=== PATIENT | female | born 1960 | race Caucasian/White ===

== ENCOUNTER 2019-02-23 09:00 | Outpatient (RCR) | payer BC | END 2019-02-23 09:30 | LOC: PT 09:00 | DX: M54.16 Radiculopathy, lumbar region (principal) ==

== ENCOUNTER 2021-03-18 09:12 | Emergency (ER) | payer BC ==
[~2021-03-18] VITALS: Ht 162.6 cm; Wt 79.4 kg
[2021-03-18] MEDS ORDERED: CARVEDILOL12.5 MG PO (09:34)
[2021-03-18] MEDS ORDERED: LAMOTRIGINE300 MG PO (09:34)
[2021-03-18] MEDS ORDERED: ROSUVASTATIN CA10 MG PO (09:35)
[2021-03-18] MEDS ORDERED: GOOD NEIGHBOR P20 M1 PO (09:35)
[2021-03-18] MEDS ORDERED: ESTRADIOL0.1 MG/24 TD (09:35)
[2021-03-18] MEDS ORDERED: DESYREL50 MG PO (09:36)
[2021-03-18] MEDS ORDERED: RITALIN 20 MG (09:40)
[2021-03-18 10:27] LABS: BASO # 0.05 (0.02-0.10); EOS # 0.26 (0.04-0.40); EOS % 5.5 % (1.0-5.0); HEMATOCRIT 45.1 % (37.0-47.0); HEMOGLOBIN 14.3 g/dL (12.5-16.0); LYMPH# 1.04 (1.50-4.00); MEAN CELL VOLUME 96 fl (78-100); MEAN CORPUSCULAR HEMOGLOBIN 31 pg (27-31); MEAN CORPUSCULAR HGB CONC 32 g/dL (33-37); MEAN PLATELET VOLUME 9.8 fl (7.4-10.4); MONO # 0.42 (0.20-0.80); NEU # 2.93 (1.40-6.50); PLATELET COUNT 211 K/mm3 (130-400); RED BLOOD COUNT 4.68 M/mm3 (4.10-5.30); RED CELL DISTRIBUTION WIDTH 11.8 % (11.5-14.5); WHITE BLOOD COUNT 4.7 K/mm3 (4.8-10.8)
[2021-03-18 10:41] LABS: POTASSIUM 4.6 mmol/L (3.5-5.1)
[2021-03-18 10:42] LABS: CALCIUM 9.8 mg/dL (8.3-10.5)
[2021-03-18 10:49] LABS: MAGNESIUM 1.97 mg/dL (1.60-2.60)
[2021-03-18 11:14] VITALS: BP 160/92
== END 2021-03-18 11:14 | disposition home or self-care (01) ==
LOC: ED 09:12
PROVIDERS: Physician Assistant
DX: R19.7 Diarrhea, unspecified (principal); R11.0 Nausea; T43.215A Adverse effect of selective serotonin and norepinephrine reuptake inhibitors, initial encounter; G47.00 Insomnia, unspecified; F32.9 Major depressive disorder, single episode, unspecified; E78.5 Hyperlipidemia, unspecified; I10 Essential (primary) hypertension; Z79.899 Other long term (current) drug therapy

== ENCOUNTER 2021-12-14 08:44 | Outpatient (RCR) | payer BC ==
[~2021-12-14 08:44] MED LIST: CARVEDILOL12.5 MG PO; DESYREL50 MG PO; ESTRADIOL0.1 MG/24 TD; GOOD NEIGHBOR P20 M1 PO; LAMOTRIGINE300 MG PO; RITALIN 20 MG; ROSUVASTATIN CA10 MG PO
== END 2021-12-29 | disposition home or self-care (01) ==
LOC: PT
DX: M25.561 Pain in right knee (principal)

== ENCOUNTER 2022-01-06 09:00 | Outpatient (RCR) | payer BC | END 2022-01-28 | LOC: PT | DX: M25.561 Pain in right knee (principal) ==

== ENCOUNTER 2022-01-20 14:00 | Outpatient (RCR) | payer BC | END 2022-01-28 | disposition home or self-care (01) | LOC: PT | DX: S83.241D Other tear of medial meniscus, current injury, right knee, subsequent encounter (principal); X58.XXXD Exposure to other specified factors, subsequent encounter ==

== ENCOUNTER 2022-02-04 09:30 | Outpatient (RCR) | payer BC | END 2022-02-28 | disposition home or self-care (01) | LOC: PT | DX: S83.241D Other tear of medial meniscus, current injury, right knee, subsequent encounter (principal); X58.XXXD Exposure to other specified factors, subsequent encounter ==

== ENCOUNTER 2022-04-09 08:26 | Outpatient (RCR) | payer BC | END 2022-04-30 | LOC: PT | DX: M25.561 Pain in right knee (principal) ==

== ENCOUNTER → 2022-04-14 | Outpatient (CLI) | payer BC ==
[2022-04-14 08:15] LABS: URINE WBC 0 /hpf (0-3)
[2022-04-14 08:52] LABS: BASO # 0.07 K/mm3 (0.02-0.10); EOS # 0.49 K/mm3 (0.04-0.40); EOS % 7.8 % (1.0-5.0); HEMATOCRIT 40.4 % (37.0-47.0); LYMPH# 1.27 K/mm3 (1.50-4.00); MEAN CELL VOLUME 95 fl (78-100); MEAN CORPUSCULAR HEMOGLOBIN 31 pg (27-31); MEAN CORPUSCULAR HGB CONC 32 g/dL (33-37); MEAN PLATELET VOLUME 9.9 fl (7.4-10.4); MONO # 0.53 K/mm3 (0.20-0.80); PLATELET COUNT 248 K/mm3 (130-400); RED BLOOD COUNT 4.24 M/mm3 (4.10-5.30); WHITE BLOOD COUNT 6.3 K/mm3 (4.8-10.8)
[2022-04-14 08:55] LABS: ALBUMIN 4.1 g/dL (3.4-4.8); POTASSIUM 4.6 mmol/L (3.5-5.1)
[2022-04-14 08:56] LABS: CALCIUM 10.2 mg/dL (8.3-10.5)
[2022-04-14 08:57] LABS: TOTAL PROTEIN 7.1 g/dL (6.2-8.1)
[2022-04-14 08:59] LABS: TOTAL BILIRUBIN 0.5 mg/dL (0.2-1.2)
[2022-04-14 09:49] LABS: PH-URINE 6.5 (5.0 - 8.0); URINE APPEARANCE CLEAR; URINE BILIRUBIN NEGATIVE (NEGATIVE); URINE BLOOD TRACE (NEGATIVE); URINE COLOR YELLOW; URINE GLUCOSE NEGATIVE (NEGATIVE); URINE KETONE NEGATIVE (NEGATIVE); URINE LEUKOCYTE ESTERASE NEGATIVE (NEGATIVE); URINE NITRATE NEGATIVE (NEGATIVE); URINE PROTEIN(semi-quant) NEGATIVE (NEGATIVE); URINE UROBILINOGEN NORMAL (NORMAL)
== END ==
LOC: LAB 08:02
PROVIDERS: Internal Medicine
DX: Z00.00 Encounter for general adult medical examination without abnormal findings (principal); Z51.81 Encounter for therapeutic drug level monitoring; Z79.899 Other long term (current) drug therapy

== ENCOUNTER → 2022-04-28 | Outpatient (CLI) | payer BC | LOC: LAB 09:18 | DX: Z01.89 Encounter for other specified special examinations (principal) ==

== ENCOUNTER 2022-05-03 08:03 | Outpatient (RCR) | payer BC | END 2022-05-31 | disposition still patient (30) | LOC: PT | DX: M25.561 Pain in right knee (principal) ==

== ENCOUNTER 2022-10-30 12:15 | Emergency (ER) | payer BC ==
[~2022-10-30] VITALS: Ht 162.6 cm; Wt 86.6 kg
[2022-10-30 12:35] VITALS: BP 171/82
[2022-10-30] MEDS ORDERED: LITHIUM 30300 MG/CAP PO (12:36)
[2022-10-30 13:03] LABS: BASO # 0.04 K/mm3 (0.02-0.10); EOS # 0.21 K/mm3 (0.04-0.40); EOS % 3.4 % (1.0-5.0); HEMATOCRIT 44.8 % (37.0-47.0); HEMOGLOBIN 14.5 g/dL (12.5-16.0); LYMPH# 1.24 K/mm3 (1.50-4.00); MEAN CELL VOLUME 98 fl (78-100); MEAN CORPUSCULAR HEMOGLOBIN 32 pg (27-31); MEAN CORPUSCULAR HGB CONC 32 g/dL (33-37); MEAN PLATELET VOLUME 9.5 fl (7.4-10.4); MONO # 0.64 K/mm3 (0.20-0.80); NEU # 3.97 K/mm3 (1.40-6.50); PLATELET COUNT 203 K/mm3 (130-400); RED BLOOD COUNT 4.57 M/mm3 (4.10-5.30); RED CELL DISTRIBUTION WIDTH 11.7 % (11.5-14.5); WHITE BLOOD COUNT 6.1 K/mm3 (4.8-10.8)
== END 2022-10-30 15:05 | disposition home or self-care (01) ==
LOC: ED 12:15
PROVIDERS: Family Medicine
DX: M25.562 Pain in left knee (principal); Z28.311 Partially vaccinated for COVID-19

== ENCOUNTER 2023-06-02 07:51 | Outpatient (RCR) | payer BC ==
[~2023-06-02 07:51] MED LIST changes: +ESTRADIOL1 EAC1 TD; +GABAPENTIN100 MG PO; +LAMOTRIGINE150 MG PO; +LITHIUM 30300 MG/CAP PO
== END 2023-06-30 | disposition home or self-care (01) ==
LOC: PT
DX: M54.16 Radiculopathy, lumbar region (principal)

== ENCOUNTER 2023-08-22 13:00 | Outpatient (RCR) | payer BC | END 2023-08-31 | disposition home or self-care (01) | LOC: PT | DX: M48.061 Spinal stenosis, lumbar region without neurogenic claudication (principal); M54.16 Radiculopathy, lumbar region ==

== ENCOUNTER 2023-09-01 08:00 | Outpatient (RCR) | payer BC | END 2023-09-29 | disposition home or self-care (01) | LOC: PT | DX: M48.061 Spinal stenosis, lumbar region without neurogenic claudication (principal); M54.16 Radiculopathy, lumbar region ==

== ENCOUNTER → 2023-11-29 | Outpatient (RCR) | payer BC | END | disposition home or self-care (01) | LOC: PT | DX: M25.512 Pain in left shoulder (principal); M25.511 Pain in right shoulder ==

== ENCOUNTER 2023-12-13 12:57 | Outpatient (RCR) | payer BC | END 2023-12-30 | disposition home or self-care (01) | LOC: PT | DX: M54.16 Radiculopathy, lumbar region (principal); Z98.890 Other specified postprocedural states ==

== ENCOUNTER → 2024-10-31 | Outpatient (CLI) | payer BC ==
[2024-10-31 12:35] LABS: BASO # 0.05 K/mm3 (0.02-0.10); EOS # 0.16 K/mm3 (0.04-0.40); EOS % 2.9 % (1.0-5.0); HEMATOCRIT 37.1 % (37.0-47.0); HEMOGLOBIN 12.3 g/dL (12.5-16.0); MEAN CELL VOLUME 94 fl (78-100); MEAN CORPUSCULAR HEMOGLOBIN 31 pg (27-31); MEAN CORPUSCULAR HGB CONC 33 g/dL (33-37); MONO # 0.43 K/mm3 (0.20-0.80); PLATELET COUNT 251 K/mm3 (130-400); RED BLOOD COUNT 3.94 M/mm3 (4.10-5.30); RED CELL DISTRIBUTION WIDTH 14.2 % (11.5-14.5); WHITE BLOOD COUNT 5.5 K/mm3 (4.8-10.8)
[2024-10-31 12:44] LABS: CALCIUM 9.6 mg/dL (8.3-10.5)
[2024-10-31 12:46] LABS: TOTAL PROTEIN 6.8 g/dL (6.2-8.1)
[2024-10-31 12:47] LABS: TOTAL BILIRUBIN 0.4 mg/dL (0.2-1.2)
[2024-10-31 12:51] LABS: PROTHROMBIN TIME 10.1 SECONDS (9.0-12.0)
[2024-11-01 01:37] LABS: HEPATITIS B CORE AB TOTAL Negative (Negative); HEPATITIS B SURFACE ANTIBODY 550.1 (())
[2024-11-06 17:10] LABS: VITAMIN A 44.4 ug/dL (())
== END ==
LOC: LAB 12:00
PROVIDERS: Internal Medicine Gastroenterology
DX: K83.09 Other cholangitis (principal); R74.8 Abnormal levels of other serum enzymes